=== PATIENT | female | born 1960 | race Two or more races ===

== ENCOUNTER 2018-10-25 01:08 | Emergency (ER) | payer OTHER ==
[~2018-10-25] VITALS: Ht 165.1 cm; Wt 73.5 kg
[2018-10-25] MEDS ORDERED: MED PARA B/P (01:33)
== END 2018-10-25 06:58 | disposition home or self-care (01) ==
LOC: ER 01:08 → CPU-OBS 01:13 → ER 06:58
DX: R07.89 Other chest pain (principal); I16.0 Hypertensive urgency; I10 Essential (primary) hypertension
CPT/HCPCS: G0378; G0379; 93005